=== PATIENT | male | born 1955 | race Caucasian/White ===

== ENCOUNTER 2023-07-31 10:20 | Outpatient (OUT) | payer MEDICARE, SELFPAY ==
[2023-07-31 10:48] LABS: Basophils Absolute Auto 0.1 10^3/uL (0.0-0.1); Basophils Percent Auto 0.6 % (0.2-2.0); Eosinophils Absolute Auto 0.2 10^3/uL (0.0-0.7); Eosinophils Percent Auto 1.8 % (0.9-7.0); Hematocrit 44.8 % (42.0-54.0); Hemoglobin 14.8 g/dL (14.0-18.0); Immature Granulocytes Abs Auto 0.12 10^3/uL (0.00-0.03); Immature Granulocytes Pct Auto 1.3 % (0.0-0.5); Lymphocytes Absolute Auto 2.3 10^3/uL (1.2-3.8); Lymphocytes Percent Auto 24.4 % (20.5-60.0); Mean Corpuscular Hemoglobin 31.2 pg (25.9-34.0); Mean Corpuscular Volume 94.5 fL (80.0-94.0); Mean Platelet Volume 8.9 fL (9.5-13.5); Monocytes Percent Auto 11.1 % (1.7-12.0); Neutrophils Absolute Auto 5.7 10^3/uL (1.4-6.5); Neutrophils Percent Auto 60.8 % (43.0-75.0); Platelet Count 188 10^3/uL (150-450); Red Blood Count 4.74 10^6/uL (4.70-6.10); Red Cell Distribution Width 12.4 % (11.0-15.0); White Blood Count 9.3 10^3/uL (4.0-11.0)
[2023-07-31 10:51] LABS: Erythrocyte Sedimentation Rate 55 mm/hr (<=20)
[2023-07-31 11:35] LABS: Alanine Aminotransferase 42 U/L (16-63); Anion Gap 12.7; BUN Creatinine Ratio 11.3; Calcium 9.1 mg/dL (8.5-10.1); Carbon Dioxide 28.1 mmol/L (21.0-32.0); Chloride 103 mmol/L (98-107); Estimated GFR (African America >60 (>=60); Estimated GFR (Non-African Ame >60 (>=60); Glucose 113 mg/dL (74-106); Potassium 3.8 mmol/L (3.5-5.1); Sodium 140 mmol/L (136-145)
[2023-07-31 11:52] LABS: Prostate Specific Antigen Scrn 3.84 ng/mL (<=4.00)
[2023-08-01 09:12] LABS: Rheumatoid Factor (RF) 12.6 IU/mL (<14.0)
== END 2023-07-31 10:21 | disposition home or self-care (01) ==
PROVIDERS: PCP Internal Medicine; Visit Provider Internal Medicine
DX: Z79.899 Other long term (current) drug therapy (principal); I10 Essential (primary) hypertension; Z87.39 Personal history of other diseases of the musculoskeletal system and connective tissue; Z12.5 Encounter for screening for malignant neoplasm of prostate; M06.4 Inflammatory polyarthropathy
CPT/HCPCS: 36415; 80048; 84460; 84550; 85025; 85652; 86430; 86431; G0103

== ENCOUNTER 2024-02-22 09:35 | Outpatient (OUT) | payer MEDICARE, SELFPAY ==
--- NOTE | 2024-02-22 09:50 | CT_ITS ---
The [address] [address] Patient Name: SAMMY MORRISON MRN: [id number] date: 1955 Sex: M Assigned Patient Location: LAB Current Patient Location: Accession/Order Number: [id number] Exam Date: 02/22/2024 10:44 Report Date: 02/23/2024 06:39 At the request of: PRATIMA ANGEL Procedure: CT head/brain wo/w con EXAMINATION: CT head/brain wo/w con HISTORY: Blurring Visual Image, Primary Hypertension COMPARISON: No relevant comparison available. TECHNIQUE: Axial CT images were obtained without IV contrast. Dose reduction techniques were achieved by using automated exposure control and/or adjustment of mA and/or kV according to patient size and/or use of iterative reconstruction technique. FINDINGS: BRAIN: No edema, hemorrhage, mass, acute infarction, or inappropriate atrophy. CSF SPACES: 5 mm dense nodule within the third ventricle. SKULL: No fracture, mass, or other significant visible lesion. SINUSES: Dense, complete opacification of right frontal sinuses, the majority of the right ethmoid air cells, and the right sphenoid sinus. ORBITS: No appreciable abnormality on the limited views. OTHER: Negative CT/CT head/brain wo/w con IMPRESSION: 1. No intracranial hemorrhage or appreciable acute abnormality. 2. Dense 5 mm nodule within the third ventricle. MRI of brain is recommended for further evaluation. 3. Marked chronic sinusitis involving the right frontal, sphenoid, and ethmoid sinuses. Electronically authenticated by: TONY CHACKO Date: 02/23/2024 06:39
[2024-02-22 10:07] LABS: Estimated GFR (African America >60 (>=60); Estimated GFR (Non-African Ame >60 (>=60)
== END 2024-02-22 09:36 | disposition home or self-care (01) ==
LOC: LAB 09:35
PROVIDERS: PCP Internal Medicine; Visit Provider Internal Medicine
DX: H53.8 Other visual disturbances (principal); I10 Essential (primary) hypertension
CPT/HCPCS: 36415; 70470; 82565; Q9967

== ENCOUNTER 2024-03-07 09:26 | Outpatient (OUT) | payer MEDICARE, SELFPAY ==
--- NOTE | 2024-03-07 09:31 | MR_ITS ---
The [address] [address] Patient Name: SAMMY MORRISON MRN: [id number] date: 1955 Sex: M Assigned Patient Location: MRI Current Patient Location: Accession/Order Number: [id number] Exam Date: 03/07/2024 10:00 Report Date: 03/09/2024 08:31 At the request of: PRATIMA ANGEL Procedure: MR head/brain wo/w con MR head/brain wo/w con, 03/07/2024 10:00 AM EDT INDICATION: Mass Of Brain G93.89 COMPARISON: Prior CT of the head dated 02/22/2024 TECHNIQUE: Multiplanar, multisequential MRI images of brain were obtained without and with injection of contrast. FINDINGS: The cerebral sulci as well as ventricular system are appropriate for age. There is no restricted diffusion. There is no midline shift, intra or extra-axial fluid collection or large hemorrhage. Previously described 5 mm lesion at the level of foramen Monro in the third ventricle is most likely consistent with colloid cyst. No abnormal enhancing lesion is noted. Hyperintensities on T2 and FLAIR images in the parks radiata and centrum semiovale with sparing of U fibers are nonspecific, statistically most likely consistent with mild microvascular ischemic changes. Normal flow-void in the intracranial vessels is noted. Retention cyst within the right maxillary sinus is noted. There is mucosal thickening within the right frontal sinus, right frontal recess and anterior ethmoidal cells. The visualized portions of orbits, mastoid air cells as well as remainder of paranasal sinuses are unremarkable. MR/MR head/brain wo/w con IMPRESSION: No acute intracranial process is noted. 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 Mucosal thickening within the right frontal sinus, frontal recess and anterior ethmoidal cells suggesting of ostiomeatal complex obstruction. ENT correlation is recommended. Electronically authenticated by: JUSTINA AUGUSTINE Date: 03/09/2024 08:31
--- OUTSIDE RECORDS SUMMARY | 2024-03-07 09:41 | XMS_ITS | CCD ---
Author Organization [facility] Care Team Providers Care Instructor Kindergarten Name Role Phone Luis Angel Unavailable REQUEST, DR KAUFMAN LISTED Consulting Unavaila ble REQUEST, DR KAUFMAN LISTED Admitting Unavaila ble REQUEST, DR KAUFMAN LISTED Attending Unavaila ble BALL, DR ANDUJAR Primary Care Unavailable BALL, DR ANDUJAR Admitting Unavailable BALL, DR ANDUJAR Attending Unavailable BALL, DR ANDUJAR Consulting Unavailable BALL, DR ANDUJAR Primary Care Unavailable BALL, DR ANDUJAR Admitting Unavailable BALL, DR ANDUJAR Attending Unavailable BALL, DR ANDUJAR Consulting Unavailable Allergies Allergy Classification Reported Allergen(s) Allergy Type Date of Onset Reaction(s) Facility (6 sources) [facility] 01-29-2024 Unknown, Unknown Reaction [facility] (6 sources) febuxostat Drug Allergy 01-29-2024 Unknown, Unknown Reaction [facility] Medications Current Medications Medication Drug Class(es) Dates Sig (Normalized) Sig (Original) amLODIPine 5 mg oral tablet (1 source) Dihydropyridine Calcium Channel Ariadna Start: 12-03-2023 take 5 mg by mouth once daily Amlodipine Active 5 MG PO Daily 90 90 December 03, 2023 12:00am carvedilol 12.5 mg oral tablet (7 sources) alpha-Adrenergic Ariadna, beta-Adrenergic [facility]adna Start: 11-04-2023 take 1 tablet by mouth twice daily Carvedilol Active 0 .ROUTE .COMPLEX 180 November 04, 2023 9:58am TAKE 1 TABLET BY MOUTH TWICE A DAY Start: 11-04-2023 End: 11-04-2023 take 12.5 mg by mouth twice daily Carvedilol Discontinued 12.5 MG PO Twice daily November 04, 2023 12:00am November 04, 2023 9:58am take 1 tablet by jazmine th twice daily Carvedilol 12.5 MG TAKE 1 TABLET BY MOUTH TWICE A DAY Active predniSONE 20 mg oral tablet (4 sources) Start: 09-25-2023 Prednisone Act eleni 20 MG PO As Directed September 25, 2023 1:00am predniSONE 10 MG TAKE 2 TABS 3 TIMES DAILY X5DAYS,2 TABS TWICE DAILY X5DAYS,2 TABS DAILY X5DAYS NEEDED FOR GOUT for 15 Active predniSONE 10 MG TAKE 2 TABS 3 TIMES DAILY X5 DAYS,2 TABS TWICE DAILY X5 DAYS,2 TABS DAILY X5 DAYS NEEDED FOR GOUT Active traZODone hydrochloride 50 mg oral tablet (3 sources) Serotonin Reuptake Inhibitor Start: 11-04-2023 Trazodone Active 50 MG PO Daily at bedtime November 04, 2023 12:00am TAKE 1/2 - 1 TABLET BY MOUTH EVERYDAY AT BEDTIME Orally Once a day Start: 05-25-2023 take 0.5-1 tablets b y mouth once at bedtime traZODone HCl 50 MG 1/2 - 1 tablet Orally q HS for 30 days May, Active Problems Problem Classification Problem Date Documented Date Episodic/Chronic E Codes: Adverse effects of medical drugs (3 sources) Prednisone adverse reaction; Translations: [Adverse effect of glucocorticoids and synthetic analogues, initial encounter] 12-03-2023 Episodic Essential hypertension (14 sources) Essential hypertension; Translations: [Essential (primary) hypertension] Onset: 06-12-2022 Chronic Genitourinary symptoms and ill-defined conditions (2 sources) Nocturia Episodic Hyperplasia of prostate (9 sources) 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; Translations: [Benign prostatic hyperplasia with lower urinary tract symptoms] Chronic Miscellaneous mental health disorders (3 sources) Primary insomnia; Translations: [Primary insomnia] Chronic Osteoarthritis (7 sources) Osteoarthritis of knee; Translations: [Bilateral primary osteoarthritis of knee] Chronic Other aftercare (1 source) Other intermission coordinator (current) drug therapy Episodic Other connective tissue disease (2 sources) Personal history of other diseases of the musculoskeletal system and connective tissue Episodic Other nutritional; endocrine; and metabolic disorders (1 source) Obese abdomen; Translations: [Localized adiposity] 12-03-2023 Chronic Other nutritional; endocrine; and metabolic disorders (1 source) Obesity; Translations: [Obesity, unspecified] 12-03-2023 Chronic Other nutritional; endocrine; and metabolic disorders (2 sources) Obesity, unspecified; Translations: [Obesity, unspecified] 12-03-2023 Chronic Other screening for suspected conditions (not mental disorders or infectious disease) (7 sources) Raised prostate specific antigen; Translations: [Elevated prostate specific antigen [PSA]] Onset: 06-16-2022 Episodic Rheumatoid arthritis and related disease (16 sources) Inflammatory polyarthropathy; Translations: [Inflammatory polyarthropathy] Onset: 2022 Chronic Spondylosis; intervertebral disc disorders; other back problems (9 sources) Lumbar spondylosis; Translations: [Spondylosis without myelopathy or radiculopathy, lumbar region] Chronic Results Test Name Value Interpretation Reference Range Facil ity RHEUMATOID FACTORon 12-11-19 RA Latex Turbid. 11.7 IU/mL Normal <14.0 [facility] Comment on above: Performed By: #### R F #### [facility] [address] [place] [address] Dr. Gearld Mejia CRPon 2022 CRP 2.9 mg/dL Critically high <=1.0 [facility] Comment on above: Performed By: #### C RP #### [facility] [address] [place] [address] Dr. Gerald Mejia CBC AUTO DIFFon 06-12-2022 BASO # 0.0 103/ul Normal 0.0-0.1 [facility] Comment on above: Performed By: #### C BC #### [facility] [address] [place] [address] Dr. Gerald Mejia Basophils/100 WBC (Bld) 0.3 % Normal 0.2-2.0 [facility] Comment on above: Performed By: #### C BC #### [facility] [address] [place] [address] Dr. Gerald Mejia EO # 0.1 103/ul Normal 0.0-0.7 [facility] Comment on above: Performed By: #### C BC #### [facility] [address] [place] [address] Dr. Gerald Mejia Eosinophils/100 WBC (Bld) 1.3 % Normal 0.9-7.0 [facility] Comment on above: Performed By: #### C BC #### [facility] [address] [place] [address] Dr. Gerald Mejia Erythrocyte distribution width (RBC) [Ratio] 12.2 % Normal 11.0-15.0 [facility] Comment on above: Performed By: #### C BC #### [facility] [address] [place] [address] Dr. Gerald Mejia Hematocrit (Bld) [Volume fraction] 42.7 % Normal 42.0-54.0 [facility] Comment on above: Performed By: #### C BC #### [facility] [address] [place] [address] Dr. Gerald Mejia Hemoglobin (Bld) [Mass/Vol] 14.4 g/dL Normal 14.0-18.0 [facility] Comment on above: Performed By: #### C BC #### [facility] [address] [place] [address] Dr. Gerald Mejia IG # 0.10 10e3/ul Critically high 0.00-0.03 [facility] Comment on above: Performed By: #### C BC #### [facility] [address] [place] [address] Dr. Gerald Mejia IG % 1.0 % Critically high 0.0-0.5 [facility] Comment on above: Performed By: #### C BC #### [facility] [address] [place] [address] Dr. Gerald Mejia LYMPH # 2.5 103/ul Normal 1.2-3.8 [facility] Comment on above: Performed By: #### C BC #### [facility] [address] [place] [address] Dr. Gerald Mejia Lymphocytes/100 WBC (Bld) 24.7 % Normal 20.5-60.0 [facility] Comment on above: Performed By: #### C BC #### [facility] [address] [place] [address] Dr. Gerald Mejia MANUAL DIFF REQ NO Normal [facility] Comment on above: Performed By: #### C BC #### [facility] [address] [place] [address] Dr. Gerald Mejia MCH (RBC) [Entitic mass] 32.2 pg Normal 25.9-34.0 [facility] Comment on above: Performed By: #### C BC #### [facility] [address] [place] [address] Dr. Gerald Mejia MCHC (RBC) [Mass/Vol] 33.7 g/dL Normal 29.9-35.2 [facility] Comment on above: Performed By: #### C BC #### [facility] [address] [place] [address] Dr. Gerald Mejia MCV (RBC) [Entitic vol] 95.5 fL Critically high 80.0-94.0 [facility] Comment on above: Performed By: #### C BC #### [facility] [address] [place] [address] Dr. Gerald Mejia MONO # 1.1 103/ul Critically high 0.3-0.8 [facility] Comment on above: Performed By: #### C BC #### [facility] [address] [place] [address] Dr. Gerald Mejia Monocytes/100 WBC (Bld) 11.1 % Normal 1.7-12.0 [facility] Comment on above: Performed By: #### C BC #### [facility] [address] [place] [address] Dr. Gerald Mejia NEUT # 6.3 103/ul Normal 1.4-6.5 [facility] Comment on above: Performed By: #### C BC #### [facility] [address] [place] [address] Dr. Gerald Mejia Neutrophils/100 WBC (Bld) 61.6 % Normal 43.0-75.[address] [facility] Comment on above: Performed By: #### C BC #### [facility] [address] [place] [address] Dr. Gerald Mejia Platelet mean volume (Bld) [Entitic vol] 9.3 fL Critically low 9.5-13.5 [facility] Comment on above: Performed By: #### C BC #### [facility] [address] [place] [address] Dr. Gerald Mejia PLT 205 103/ul Normal 150-[address] [facility] Comment on above: Performed By: #### C BC #### [facility] [address] [place] [address] Dr. Gerald Mejia RBC 4.47 106/ul Critically low 4.70-6.10 [facility] Comment on above: Performed By: #### C BC #### [facility] [address] [address] [address] Gerald Mejia WBC 10.2 103/ul Normal 4.0-11.0 [facility] Comment on above: Performed By: #### C BC #### [facility] [address] [place] [address] Dr. Gerald Mejia PROF CHEM 8 (BAS METB)on Anion gap [Moles/Vol] 10.3 mmol/L Normal [facility] Comment on above: Performed By: #### B MP #### [facility] [address] [place] [address] Dr. Gerald Mejia Calcium [Mass/Vol] 9.0 mg/dL Normal 8.5-10.1 [facility] Comment on above: Performed By: #### B MP #### [facility] [address] [place] [address] Dr. Gerald Mejia Chloride [Moles/Vol] 100 mmol/L Normal 98-[address] [facility] Comment on above: Performed By: #### B MP #### [facility] [address] [place] [address] Dr. Gerald Mejia CO2 [Moles/Vol] 31.5 mmol/L Normal 21.0-32.0 [facility] Comment on above: Performed By: #### B MP #### [facility] [address] [place] [address] Dr. Gerald Mejia Creatinine [Mass/Vol] 0.98 mg/dL Normal 0.70-1.30 [facility] Comment on above: Performed By: #### B MP #### [facility] [address] [place] [address] Dr. Gerald Mejia EGFR-AF MACEDONIAN >60 Normal >=60 [facility] Comment on above: Performed By: #### B MP #### [facility] [address] [address] [address] Gerald Mejia EGFR-NON AF MACEDONIAN >60 Normal >=60 [facility] Comment on above: Performed By: #### B MP #### [facility] [address] [address] [address] Gerald Mejia Glucose [Mass/Vol] 114 mg/dL Critically high 74-106 [facility] Comment on above: Performed By: #### B MP #### [facility] [address] [address] [address] Gerald Mejia Potassium [Moles/Vol] 3.8 mmol/L Normal 3.5-5.1 [facility] Comment on above: Performed By: #### B MP #### [facility] [address] [address] [address] Gerald Mejia Sodium [Moles/Vol] 138 mmol/L Normal 136-145 [facility] Comment on above: Performed By: #### B MP #### [facility] [address] [address] [address] Gerald Mejia Urea nitrogen [Mass/Vol] 14.0 mg/dL Normal 7.0-18.0 [facility] Comment on above: Performed By: #### B MP #### [facility] [address] [address] [address] Gerald Mejia Urea nitrogen/Creatinine [Mass ratio] 14.3 mg/mg Normal [facility] Comment on above: Performed By: #### B MP #### [facility] [address] [address] [address] Gerald Mejia Vital Signs Date Time Vital Sign Value Performing Clinician Facility 01-29-2024 14: Body height 170.18 cm [facility] 01-29-2024 14: Body mass index (BMI) [Ratio] 30.7 kg/m2 [facility] 01-29-2024 14: Body weight 89.01 kg [facility] 01-29-2024 14:29-0400 Diastolic blood pressure 95 mm[Hg] [facility] 01-29-2024 14:29-0400 Heart rate 58 /min [facility] 01-29-2024 14:29-0400 Respiratory rate 12 /min [facility] 01-29-2024 14:29-0400 Systolic blood pressure 180 mm[Hg] [facility] 12-03-2023 08:31-0400 Body height 170.18 cm [facility] 12-03-2023 08:31-0400 Body mass index (BMI) [Ratio] 31.1 kg/m2 [facility] 12-03-2023 08:31-0400 Body weight 90.26 kg [facility] 12-03-2023 08:31-0400 Diastolic blood pressure 101 mm[Hg] [facility] 12-03-2023 08:31-0400 Heart rate 57 /min [facility] 12-03-2023 08:31-0400 Respiratory rate 12 /min [facility] 12-03-2023 08:31-0400 Systolic blood pressure 193 mm[Hg] [facility] 05-25-2023 08:30-0400 Body height 170.18 cm Luis Ball Other [facility] Other 05-25-2023 08:30-0400 Body mass index (BMI) [Ratio] 31.35 kg/m2 Luis Ball Other [facility] Other 05-25-2023 08:30-0400 Body weight 90.81 kg Luis Ball Other [facility] Other 05-25-2023 08:30-0400 Diastolic blood pressure 101 mm[Hg] Luis Ball Other [facility] Other 05-25-2023 08:30-0400 Respiratory rate 12 /min Luis Ball Other [facility] Other 05-25-2023 08:30-0400 Systolic blood pressure 197 mm[Hg] Luis Ball Other [facility] Other 11-20-2022 10:00-0400 Body height 170.18 cm Luis Ball Other [facility] Other 11-20-2022 10:00-0400 Body mass index (BMI) [Ratio] 31.29 kg/m2 Luis Ball Other [facility] Other 11-20-2022 10:00-0400 Body weight 90.63 kg Luis Ball Other [facility] Other 11-20-2022 10:00-0400 Diastolic blood pressure 109 mm[Hg] Luis Ball Other [facility] Other 11-20-2022 10:00-0400 Respiratory rate 16 /min Luis Ball Other [facility] Other 11-20-2022 10:00-0400 Systolic blood pressure 193 mm[Hg] Luis Ball Other [facility] Other Encounters Encounter Date Encounter Type Care Provider Facility Start: 01-29-2024 End: 01-29-2024 ambulatory [facility] Work Phone: Start: 01-29-2024 End: 01-29-2024 Patient encounter procedure [facility] Work Phone: Start: 12-03-2023 End: 12-03-2023 Patient encounter procedure [facility] Work Phone: Start: 11-04-2023 Non-patient / Non-visit [facility] Work Phone: Start: 08-04-2023 End: 08-04-2023 ambulatory Luis Ball Other [facility] Other Start: 08-04-2023 Telephone encounter Luis FOWLER [facility] Start: 05-25-2023 End: 05-25-2023 ambulatory Luis Angel Other [facility] Other Start: 05-25-2023 Patient encounter procedure Luis Angel [facility] Start: 02-02-2023 End: 02-02-2023 ambulatory Luis Angel Other [facility] Other Start: 02-02-2023 Telephone encounter Luis FOWLER G [facility] Start: 12-22-2022 End: 12-22-2022 ambulatory Luis Angel Other [facility] Other Start: 12-22-2022 Telephone encounter Luis Muniz [employer] Start: 2022 End: 12-10-[address] LUIS ANGEL Facility:[facility] Start: 11-20-2022 End: 11-20-2022 ambulatory Luis Angel Other [facility] Other Start: 11-20-2022 Office outpatient vi sit 25 minutes Luis Angel [facility] Start: 06-12-2022 End: 06-13-[address] LUIS ANGEL Facility:[facility] Start: 01-08-2022 End: 01-09-[address] KAUFMAN LISTED REQUEST Facility: Procedures Date Procedure Procedure Detail Performing Clinician Start: 06-12-[address] SHAE Lewis ISTED REQUEST Comment on above: Performed By: #### P SASC #### [facility] [address] [place] [address] Dr. Gerald Mejia Start: 01-08-[address] SHAE Lewis ISTED REQUEST Comment on above: Performed By: #### D ATPSA #### [facility] [address] [place] [address] Dr. Gerald Mejia Immunizations Immunization Date Immunization Notes Care Provider Fa cili 07-24-2021 COVID-19 Vaccine Pfi zer - Documentation Purposes Only Luis Angel Other [facility] 01-10-2021 COVID-19 Vaccine Pfi zer - Documentation Purposes Only Luis Angel Other [facility] 12-20-2020 COVID-19 Vaccine Pfi zer - Documentation Purposes Only Luis Angel Other [facility] Payers Date Payer Category Payer Medicare [id number] 1959 Self-pay 1955 Unknown [id number] 1955 Unknown [id number] Unknown [id number] Social History Date Type Detail Facility Sex Assigned At [facility] Other Start: 1955 Sex Assigned At Male [facility] Evaluation note 05-25-2023 Note Date & Type Note Facility 05-25-2023 Evaluation note Encounter Date Diagnosis Assessment Notes May, Essential (primary) hypertension (ICD-10 - I10) This patient is instructed to consume a healthy, low-fat, low-salt diet. They are also encouraged to continue exercise to achieve/maintai n a normal BMI. May, Inflammatory polyarthritis (ICD-10 - M06.4) ROM exercises, heat/ice and Voltaren Gel Continue Prednisone as needed. Discussed adverse effects of prolonged steroid use. He declines referral to Rheum Check ESR and RA May, Lumbar spondylosis (ICD-10 - M47.816) The patient is instructed to avoid bending, twisting or lifting. They are to use intermittent heat and ice as needed. They may schedule a massage or gentle manipulation. They may safely use Tylenol as needed. May, Bilateral primary osteoarthritis of knee (ICD-10 - M17.0) ROM exercises, quad exercises, ice/heat and Tylenol. Avoid squatting or kneeling May, Nocturia (ICD-10 - R35.1) May, Benign prostatic hyperplasia with lower urinary tract symptoms (ICD-10 - N40.1) Symptoms tolerable, yearly PSA May, Primary insomnia (ICD-10 - F51.01) May, Medicare annual wellness visit, subsequent (ICD-10 - Z00.00) Personalized health advice was given to the beneficiary including a written plan for screenings discussed and provided. Advanced care planning reviewed and/or information given as requested. Additional counseling was provided here today in regards to, [ ]. The above visit was performed by [ ], under direct supervision of [ ]. Document reviewed and amended by provider signed below. May, High risk medication use (ICD-10 - Z79.899) May, Hx of gout (ICD-10 - Z87.39) Check UA and eSR May, Screening PSA (prostate specific antigen) (ICD-10 - Z12.5) Yearly PSA - declines ALESSIA [facility] Other Evaluation note 11-20-2022 Note Date & Type Note Facility 11-20-2022 Evaluation note Encounter Date Diagnosis Assessment Notes Nov, Essential (primary) hypertension (ICD-10 - I10) This patient is instructed to consume a healthy, low-fat, low-salt diet. They are also encouraged to continue exercise to achieve/maintain a normal BMI. Monitor home BP, stop in office for recheck Goal < 135/85 Nov, Inflammatory polyarthritis (ICD-10 - M06.4) Ice, ROM exercises Taper steroids to 5-10mg daily Questionable dx of Gout, refer to Rheumatology for evaluation and treatment guidelines Nov, Lumbar spondylosis (ICD-10 - M47.816) The patient is instructed to avoid bending, twisting or lifting. They are to use intermittent heat and ice as needed. They may schedule a massage or gentle manipulation. They may safely use Tylenol as needed. Nov, Bilateral primary osteoarthritis of knee (ICD-10 - M17.0) Quad exercises, ice/heat and avoid squatting/kneeli ng Nov, Nocturia (ICD-10 - R35.1) Nov, Benign prostatic hyperplasia with lower urinary tract symptoms (ICD-10 - N40.1) Symptoms tolerable Yearly PSA and ALESSIA Nov, Hx of gout (ICD-10 - Z87.39) Dx by [facility] [employer] [facility] in [place]. His presentation is atypical in that it will involve joints throughout his body He had elevated hepatic enzymes w/ different Urate lowering medications prompting to d/c treatment. He uses tapering doses of Prednisone for attacks but having repeated attacks since July. Suggest tapering to 5mg daily and don't taper completely off for now [facility] Other Evaluation note Note Date & Type Note Facility Evaluation note No Information [facility] [employer] [facility] Other Evaluation note Note Date & Type Note Facility Evaluation note Diagnosis Onset Date Adverse effect of prednisone acute Benign prostatic hyperplasia with lower urinary tract symptoms acute Essential (primary) hypertension acute Inflammatory polyarthritis a cute Lumbar spondylosis acute Obesity acute Adverse effect of prednisone acute Essential (primary) hypertension acute Inflammatory polyarthritis a cute Obesity acute [facility] Work Phone: History general Narrative - Reported Note Date & Type Note Facility History general Narrative - Reported Type Medical History Inflammatory polyarthropathy Medical History Bilateral primary os teoarthritis of knee Medical History Lumbar spondylosis Medical History Essential (primary) hypertension Medical History Elevated PSA Surgical History TESTICLE REMOVED 1967 Surgical History TONSILLECTOMY Surgical History COLONOSCOPY Hospitalization History SEE SURGICAL HX [facility] Other Reason for referral (narrative) Note Date & Type Note Facility Reason for referral (narrative) Diagnosis 1 Inflammatory polyart hritis (M06.4) Referral Organization [facility] Gomez rich Referring Provider First Name Luis Referring Provider Last Name Gomez Referring Provider Specialty Internal Medicine Referred Organization [facility] Referred Provider Ashok Borrego Referred Address [address] [facility] [address],[place], [place],[address] Referred Provider Specialty Rheumatology Referral Priority Routine [facility] Other Summary Purpose Family History No Family History Records Found Advance Directives Advance Directive Response Recorded Date/ Time Advance Directives No August 27, 2023 3:49pm Chief Complaint and Reason for Visit Chief Complaint Amb Documentation 6 month follow up possible mini strokes Reason for Visit Adverse effect of pr ednisone Benign prostatic hyperplasia with lower urinary tract symptoms Essential (primary) hypertension Inflammatory polyarthritis Lumbar spondylosis Obesity Adverse effect of prednisone Essential (primary) hypertension Inflammatory polyarthritis Obesity Additional Source Comments REASON FOR VISIT (unrecogniz ed section and content) 6 MONTH FOLLOW UPquestionref erralwellnessLab results (unrecognized sect ion and content) No Status Records Found INFORMATION SOURCE (unrecogn ized section and content) DATE CREATED AUTHOR 12/12/[address] [facility] Teams (unrecognized sec tion and content) Team Status: Active Member Role Status Dates Luis Angel DO Primary Care Provider Active Team Status: Active Member Role Status Dates Luis Angel DO Primary Care Provider Active Start: November 04, 2023 KERVIN Childs Attending Provider Active Start : November 04, 2023 Team Status: Inactive Member Role Status Dates Luis Angel DO Primary Care Provide r, Attending Provider Active Start: December 03, 2023 End: December 03, 2023 Team Status: Inactive Member Role Status Dates Luis Angel DO Primary Care Provide r, Attending Provider Active Start: January 29, 2024 End: January 29, 2024 Goals (unrecognized section and content) Goals may be documented in a n alternate section FOR RECORDS PERTAINING TO PATIENTS WHO ARE OR HAVE BEEN ENROLLED IN A CHEMICAL DEPENDENCY/SUBSTANCEABUSE PROGRAM, SOME INFORMATION MAY BE OMITTED. This clinical summary was aggregated from multiple sources. Caution should be exercised in using it in the provision of clinical care. This summary normalizes information from multiple sources, and as a consequence, information in this document may materially change the coding, format and clinical context of patient data. In addition, data may be omitted in some cases. CLINICAL DECISIONS SHOULD BE BASED ON THE PRIMARY CLINICAL RECORDS. [facility] [employer] provides no warranty or guarantee of the accuracy or completeness of information in this document.
== END 2024-03-07 09:27 | disposition home or self-care (01) ==
LOC: MRI 09:26
PROVIDERS: PCP Internal Medicine; Visit Provider Internal Medicine
DX: G93.89 Other specified disorders of brain (principal)
CPT/HCPCS: 70553; A9575

== ENCOUNTER 2024-12-28 10:38 | Outpatient (OUT) | payer MEDICARE, SELFPAY ==
--- OUTSIDE RECORDS SUMMARY | 2024-12-28 11:03 | XMS_ITS | CCD ---
Author Organization [facility] Care Team Providers Care Space Operations Name Role Phone Luis Angel Unavailable REQUEST, DR KAUFMAN LISTED Consulting Unavaila ble REQUEST, DR KAUFMAN LISTED Admitting Unavaila ble REQUEST, DR KAUFMAN LISTED Attending Unavaila ble BALL, DR ANDUJAR Primary Care Unavailable GOMEZ, DR ANDUJAR Admitting Unavailable GOMEZ, DR ANDUJAR Attending Unavailable BALL, DR ANDUJAR Consulting Unavailable BALL, DR ANDUJAR Primary Care Unavailable BALL, DR ANDUJAR Admitting Unavailable BALL, DR ANDUJAR Attending Unavailable BALL, DR ANDUJAR Consulting Unavailable Allergies Allergy Classification Reported Allergen(s) Allergy Type Date of Onset Reaction(s) Facility (7 sources) [facility] Drug Allergy 01-29-2024 Unknown, Unknown Reaction [facility] (7 sources) febuxostat Drug Allergy 01-29-2024 Unknown, Unknown Reaction [facility] Medications Current Medications Medication Drug Class(es) Dates Sig (Normalized) Sig (Original) amLODIPine 5 mg oral tablet (3 sources) Dihydropyridine Calcium Channel Ariadna Start: 11-06-2024 take 1 tablet by mouth once daily Amlodipine 5 mg tablet Active 0 .ROUTE .COMPLEX 90 November 06, 2024 2:59pm TAKE 1 TABLET BY MOUTH EVERY DAY Start: 12-03-2023 End: 11-06-2024 take 1 tablet by mouth once daily Amlodipine 5 mg tablet Discontinued 5 MG PO Daily 90 90 December 03, 2023 12:00am November 06, 2024 2:59pm carvedilol 12.5 mg oral tablet (11 sources) alpha-Adrenergic Ariadna, beta-Adrenergic Ariadna Start: 11-06-2024 take 1 tablet by mouth twice daily Carvedilol 12.5 mg tablet Active 0 .ROUTE .COMPLEX 180 November 06, 2024 2:59pm TAKE 1 TABLET BY MOUTH TWICE A DAY Start: 01-29-2024 End: 11-06-2024 take 1 tablet by mouth twice daily Carvedilol 12.5 mg tablet Discontinued 12.5 MG PO Twice daily 180 90 January 29, 2024 3:04pm November 06, 2024 2:59pm Start: 11-04-2023 End: 01-29-2024 take 1 tablet by mouth twice daily Carvedilol 12.5 mg tablet Discontinued 0 .ROUTE .COMPLEX 180 November 04, 2023 9:58am January 29, 2024 3:43pm TAKE 1 TABLET BY MOUTH TWICE A DAY Start: 11-04-2023 End: 11-04-2023 take 1 tablet by mouth twice daily Carvedilol 12.5 mg tablet Discontinued 12.5 MG PO Twice daily November 04, 2023 12:00am November 04, 2023 9:58am take 1 tablet by jazmine th twice daily Carvedilol 12.5 MG TAKE 1 TABLET BY MOUTH TWICE A DAY Active fluorouracil 50 mg/ml topical cream (1 source) Nucleoside Metabolic Inhibitor Start: 06-06-2024 Fluorouracil 5 % cre am Active 1 APPLIC TOPICAL Twice daily 40 14 June 06, 2024 1:00am traZODone hydrochloride 50 mg oral tablet (4 sources) Serotonin Reuptake Inhibitor Start: 11-04-2023 Trazodone 50 mg tabl et Active 50 MG PO Daily at bedtime November 04, 2023 12:00am TAKE 1/2 - 1 TABLET BY MOUTH EVERYDAY AT BEDTIME Orally Once a day Start: 05-25-2023 take 0.5-1 tablets b y mouth once at bedtime traZODone HCl 50 MG 1/2 - 1 tablet Orally q HS for 30 days May, Active Completed/Discontinued Medications Medication Drug Class(es) Dates Sig (Normalized) Sig (Original) predniSONE 10 mg oral tablet (8 sources) Start: 09-06-2024 End: 12-05-2024 take 1-2 tablets by mouth once daily as needed for pain Prednisone 10 mg tablet Discontinued 0 .ROUTE .COMPLEX 60 September 06, 2024 9:46pm December 05, 2024 8:29am TAKE 1 - 2 TABLETS BY MOUTH ONCE A DAY NEEDED FOR PAIN Start: 06-06-2024 End: 09-06-2024 take 2 tablets by mouth once daily as needed for pain Prednisone 10 mg tablet Discontinued 0 PO .COMPLEX as needed for pain 60 June 06, 2024 10:04am September 06, 2024 9:46pm TAKE 1- 2 TABLET BY MOUTH DAILY NEEDED FOR PAIN; Start: 03-23-2024 End: 06-06-2024 take 1 tablet by mouth once daily Prednisone 20 mg tablet Discontinued 0 .ROUTE .COMPLEX March 23, 2024 7:39am June 06, 2024 10:06am TAKE 1 TABLET BY MOUTH EVERY DAY DIRECTED FOR 30 DAYS Start: 09-25-2023 End: 03-23-2024 Prednisone 20 mg tablet Disc ontinued 20 MG PO As Directed September 25, 2023 1:00am March 23, 2024 7:40am predniSONE 10 MG TAKE 2 TABS 3 TIMES DAILY X5DAYS,2 TABS TWICE DAILY X5DAYS,2 TABS DAILY X5DAYS NEEDED FOR GOUT for 15 Active predniSONE 10 MG TAKE 2 TABS 3 TIMES DAILY X5 DAYS,2 TABS TWICE DAILY X5 DAYS,2 TABS DAILY X5 DAYS NEEDED FOR GOUT Active Problems Problem Classification Problem Date Documented Date Episodic/Chronic Blindness and vision defects (1 source) Blurring of visual image; Translations: [Other visual disturbances] 01-29-2024 Episodic Diabetes mellitus without complication (2 sources) Impaired fasting glycemia; Translations: [Impaired fasting glucose] 01-29-2024 Episodic Disorders of lipid metabolism (1 source) Hypercholesterolemia; Translations: [Pure hypercholesterolemia, unspecified] 06-06-2024 Chronic E Codes: Adverse effects of medical drugs (5 sources) Prednisone adverse reaction; Translations: [Adverse effect of glucocorticoids and synthetic analogues, initial encounter] 12-03-2023 Episodic Essential hypertension (16 sources) Essential hypertension; Translations: [Essential (primary) hypertension] Onset: 06-12-2022 Chronic Genitourinary symptoms and ill-defined conditions (2 sources) Nocturia Episodic Gout and other crystal arthropathies (2 sources) Gout; Translations: [Gout, unspecified] 12-05-2024 Chronic Hyperplasia of prostate (10 sources) 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; Translations: [Benign prostatic hyperplasia with lower urinary tract symptoms] Chronic Miscellaneous mental health disorders (3 sources) Primary insomnia; Translations: [Primary insomnia] Chronic Osteoarthritis (7 sources) Osteoarthritis of knee; Translations: [Bilateral primary osteoarthritis of knee] Chronic Other aftercare (1 source) Other assistant terminal manager (current) drug therapy Episodic Other connective tissue disease (2 sources) Personal history of other diseases of the musculoskeletal system and connective tissue Episodic Other nervous system disorders (1 source) Mass lesion of brain; Translations: [Other specified disorders of brain] 02-23-2024 Chronic Other nutritional; endocrine; and metabolic disorders (2 sources) Obese abdomen; Translations: [Localized adiposity] 12-03-2023 Chronic Other nutritional; endocrine; and metabolic disorders (2 sources) Obesity; Translations: [Obesity, unspecified] 12-03-2023 Chronic Other nutritional; endocrine; and metabolic disorders (3 sources) Obesity, unspecified; Translations: [Obesity, unspecified] 12-03-2023 Chronic Other screening for suspected conditions (not mental disorders or infectious disease) (9 sources) Raised prostate specific antigen; Translations: [Elevated prostate specific antigen [PSA]] Onset: 06-16-2022 Episodic Rheumatoid arthritis and related disease (18 sources) Inflammatory polyarthropathy; Translations: [Inflammatory polyarthropathy] Onset: 2022 Chronic Spondylosis; intervertebral disc disorders; other back problems (11 sources) Lumbar spondylosis; Translations: [Spondylosis without myelopathy or radiculopathy, lumbar region] Chronic Results Test Name Value Interpretation Reference Range Facil ity RHEUMATOID FACTORon 12-11-19 RA Latex Turbid. 11.7 IU/mL Normal <14.0 [facility] Comment on above: Performed By: #### R F #### [facility] [address] [place] [address] Dr. Gerald Mejia CRPon 2022 CRP 2.9 mg/dL Critically high <=1.[address] [facility] Comment on above: Performed By: #### C RP #### [facility] [address] [place] [address] Dr. Gerald Mejia CBC AUTO DIFFon 06-12-2022 BASO # 0.0 103/ul Normal 0.0-0.1 [facility] Comment on above: Performed By: #### C BC #### [facility] [address] [place] [address] Dr. Gerald Mejia Basophils/100 WBC (Bld) 0.3 % Normal 0.2-2.0 [facility] Comment on above: Performed By: #### C BC #### [facility] [address] [place] [address] Dr. Gerald Mejia EO # 0.1 103/ul Normal 0.0-0.7 [facility] Comment on above: Performed By: #### C BC #### [facility] [address] [place] [address] Dr. Gerald Mejia Eosinophils/100 WBC (Bld) 1.3 % Normal 0.9-7.0 [facility] Comment on above: Performed By: #### C BC #### [facility] [address] [place] [address] Dr. Gerald Mejia Erythrocyte distribution width (RBC) [Ratio] 12.2 % Normal 11.0-15.0 [facility] Comment on above: Performed By: #### C BC #### [facility] [address] [place] [address] Dr. Gerald Mejia Hematocrit (Bld) [Volume fraction] 42.7 % Normal 42.0-54.0 [facility] Comment on above: Performed By: #### C BC #### [facility] [address] [place] [address] Dr. Gerald Mejia Hemoglobin (Bld) [Mass/Vol] 14.4 g/dL Normal 14.0-18.0 [facility] Comment on above: Performed By: #### C BC #### [facility] [address] [place] [address] Dr. Gerald Mejia IG # 0.10 10e3/ul Critically high 0.00-0.03 [facility] Comment on above: Performed By: #### C BC #### [facility] [address] [place] [address] Dr. Gerald Mejia IG % 1.0 % Critically high 0.0-0.[address] [facility] Comment on above: Performed By: #### C BC #### [facility] [address] [place] [address] Dr. Gerald Mejia LYMPH # 2.5 103/ul Normal 1.2-3.8 [facility] Comment on above: Performed By: #### C BC #### [facility] [address] [place] [address] Dr. Gerald Mejia Lymphocytes/100 WBC (Bld) 24.7 % Normal 20.5-60.0 [facility] Comment on above: Performed By: #### C BC #### [facility] [address] [place] [address] Dr. Gerald Mejia MANUAL DIFF REQ NO Normal [facility] Comment on above: Performed By: #### C BC #### [facility] [address] [place] [address] Dr. Gerald Mejia MCH (RBC) [Entitic mass] 32.2 pg Normal 25.9-34.0 [facility] Comment on above: Performed By: #### C BC #### [facility] [address] [place] [address] Dr. Gerald Mejia MCHC (RBC) [Mass/Vol] 33.7 g/dL Normal 29.9-35.2 [facility] Comment on above: Performed By: #### C BC #### [facility] [address] [place] [address] Dr. Gerald Mejia MCV (RBC) [Entitic vol] 95.5 fL Critically high 80.0-94.0 [facility] Comment on above: Performed By: #### C BC #### [facility] [address] [place] [address] Dr. Gerald Mejia MONO # 1.1 103/ul Critically high 0.3-0.[address] [facility] Comment on above: Performed By: #### C BC #### [facility] [address] [place] [address] Dr. Gerald Mejia Monocytes/100 WBC (Bld) 11.1 % Normal 1.7-12.0 [facility] Comment on above: Performed By: #### C BC #### [facility] [address] [place] [address] Dr. Gerald Mejia NEUT # 6.3 103/ul Normal 1.4-6.5 [facility] Comment on above: Performed By: #### C BC #### [facility] [address] [place], [place] [id number] Dr. Gerald Mejia Neutrophils/100 WBC (Bld) 61.6 % Normal 43.0-75.0 [facility] Comment on above: Performed By: #### C BC #### [facility] [address] [place] [address] Dr. Gerald Mejia Platelet mean volume (Bld) [Entitic vol] 9.3 fL Critically low 9.5-13.5 [facility] Comment on above: Performed By: #### C BC #### [facility] [address] [place] [address] Dr. Gerald Mejia PLT 205 103/ul Normal 150-450 [facility] Comment on above: Performed By: #### C BC #### [facility] [address] [place] [address] Dr. Gerald Mejia RBC 4.47 106/ul Critically low 4.70-6.[address] [facility] Comment on above: Performed By: #### C BC #### [facility] [address] [place] [address] Dr. Gerald Mejia WBC 10.2 103/ul Normal 4.0-11.0 [facility] Comment on above: Performed By: #### C BC #### [facility] [address] [place] [address] Dr. Gerald Mejia PROF CHEM 8 (BAS METB)on Anion gap [Moles/Vol] 10.3 mmol/L Normal [facility] Comment on above: Performed By: #### B MP #### [facility] [address] [place] [address] Dr. Gerald Mejia Calcium [Mass/Vol] 9.0 mg/dL Normal 8.5-10.1 [facility] Comment on above: Performed By: #### B MP #### [facility] [address] [place] [address] Dr. Gerald Mejia Chloride [Moles/Vol] 100 mmol/L Normal 98-107 [facility] Comment on above: Performed By: #### B MP #### [facility] [address] [place] [address] Dr. Gerald Mejia CO2 [Moles/Vol] 31.5 mmol/L Normal 21.0-32.0 [facility] Comment on above: Performed By: #### B MP #### [facility] [address] [address] [address] Gerald Mejia Creatinine [Mass/Vol] 0.98 mg/dL Normal 0.70-1.30 [facility] Comment on above: Performed By: #### B MP #### [facility] [address] [address] [address] Gerald Mejia EGFR-AF [place]ORE[place] >60 Normal >=60 [facility] Comment on above: Performed By: #### B MP #### [facility] [address] [address] [address] Gerald Mejia EGFR-NON AF [place]ORE[place] >60 Normal >=60 [facility] Comment on above: Performed By: #### B MP #### [facility] [address] [address] [address] Gerald Mejia Glucose [Mass/Vol] 114 mg/dL Critically high 74-106 [facility] Comment on above: Performed By: #### B MP #### [facility] [address] [address] [address] Gerald Mejia Potassium [Moles/Vol] 3.8 mmol/L Normal 3.5-5.1 [facility] Comment on above: Performed By: #### B MP #### [facility] [address] [address] [address] Gerald Mejia Sodium [Moles/Vol] 138 mmol/L Normal 136-[address] [facility] Comment on above: Performed By: #### B MP #### [facility] [address] [address] [address] Gerald Mejia Urea nitrogen [Mass/Vol] 14.0 mg/dL Normal 7.0-18.0 [facility] Comment on above: Performed By: #### B MP #### [facility] [address] [address] [address] Gerald Mejia Urea nitrogen/Creatinine [Mass ratio] 14.3 mg/mg Normal [facility] Comment on above: Performed By: #### B MP #### [facility] [address] [place] [address] Dr. Gerald Mejia Vital Signs Date Time Vital Sign Value Performing Clinician Facility 12-05-2024 08:39-0400 Body height 170.18 cm [facility] 12-05-2024 08:39-0400 Body mass index (BMI) [Ratio] 30.2 kg/m2 [facility] 12-05-2024 08:39-0400 Body weight 87.65 kg [facility] 12-05-2024 08:39-0400 Diastolic blood pressure 82 mm[Hg] [facility] 12-05-2024 08:39-0400 Heart rate 60 /min [facility] 12-05-2024 08:39-0400 Respiratory rate 12 /min [facility] 12-05-2024 08:39-0400 Systolic blood pressure 137 mm[Hg] [facility] 01-29-2024 14:29-0400 Body height 170.18 cm [facility] 01-29-2024 14:29-0400 Body mass index (BMI) [Ratio] 30.7 kg/m2 [facility] 01-29-2024 14:29-0400 Body weight 89.01 kg [facility] 01-29-2024 14:29-0400 Diastolic blood pressure 95 mm[Hg] [facility] 01-29-2024 14:29-0400 Heart rate 58 /min [facility] 01-29-2024 14:29-0400 Respiratory rate 12 /min [facility] 01-29-2024 14:29-0400 Systolic blood pressure 180 mm[Hg] [facility] 12-03-2023 08:31-0400 Body height 170.18 cm [facility] 12-03-2023 08:31-0400 Body mass index (BMI) [Ratio] 31.1 kg/m2 [facility] 12-03-2023 08:31-0400 Body weight 90.26 kg [facility] 12-03-2023 08:31-0400 Diastolic blood pressure 101 mm[Hg] [facility] 12-03-2023 08:31-0400 Heart rate 57 /min [facility] 12-03-2023 08:31-0400 Respiratory rate 12 /min [facility] 12-03-2023 08:31-0400 Systolic blood pressure 193 mm[Hg] [facility] 05-25-2023 08:30-0400 Body height 170.18 cm Luis Ball Other [facility] Other 05-25-2023 08:30-0400 Body mass index (BMI) [Ratio] 31.35 kg/m2 Luis Ball Other [facility] Other 05-25-2023 08:30-0400 Body weight 90.81 kg Luis Ball Other [facility] Other 05-25-2023 08:30-0400 Diastolic blood pressure 101 mm[Hg] Luis Ball Other [facility] Other 05-25-2023 08:30-0400 Respiratory rate 12 /min Luis Ball Other [facility] Other 05-25-2023 08:30-0400 Systolic blood pressure 197 mm[Hg] Luis Ball Other [facility] Other 11-20-2022 10:00-0400 Body height 170.18 cm Luis Ball Other [facility] Other 11-20-2022 10:00-0400 Body mass index (BMI) [Ratio] 31.29 kg/m2 Luis Ball Other [facility] Other 11-20-2022 10:00-0400 Body weight 90.63 kg Luis Ball Other [facility] Other 11-20-2022 10:00-0400 Diastolic blood pressure 109 mm[Hg] Luis Angel Other [facility] Other 11-20-2022 10:00-0400 Respiratory rate 16 /min Luis Angel Other [facility] Other 11-20-2022 10:00-0400 Systolic blood pressure 193 mm[Hg] Luis Angel Other [facility] Other Encounters Encounter Date Encounter Type Care Provider Facility Start: 12-05-2024 End: 12-05-2024 ambulatory [facility] Work Phone: Start: 12-05-2024 End: 12-05-2024 Patient encounter procedure [facility] Physician [facility] Work Phone: Start: 06-03-2024 Patient encounter procedure [facility] Start: 01-29-2024 End: 01-29-2024 ambulatory [facility] Work Phone: Start: 01-29-2024 End: 01-29-2024 Patient encounter procedure [facility] Physician [facility] Work Phone: Start: 12-03-2023 End: 12-03-2023 Patient encounter procedure [facility] Physician [place] Work Phone: Start: 11-04-2023 Non-patient / Non-visit [facility] [employer] Work Phone: Start: 08-04-2023 End: 08-04-2023 ambulatory Luis Angel Other [facility] Other Start: 08-04-2023 Telephone encounter Luis Angel FP [facility] Start: 05-25-2023 End: 05-25-2023 ambulatory Luis Angel Other [facility] Other Start: 05-25-2023 Patient encounter procedure [facility] Start: 02-02-2023 End: 02-02-2023 ambulatory Luis Angel Other [facility] Other Start: 02-02-2023 Telephone encounter Luis Angel JANETH G [facility] Start: 12-22-2022 End: 12-22-2022 ambulatory Luis Angel Other [facility] Other Start: 12-22-2022 Telephone encounter Luis Angel JANETH G [employer] Start: 2022 End: 12-10-[address] LUIS ANGEL Facility:[facility] Start: 11-20-2022 End: 11-20-2022 ambulatory Luis Angel Other [facility] Other Start: 11-20-2022 Office outpatient vi sit 25 minutes Luis Angel [facility] Start: 06-12-2022 End: 06-13-[address] LUIS ANGEL Facility:[facility] Start: 01-08-2022 End: 01-09-[address] KAUFMAN LISTED REQUEST Facility: Procedures Date Procedure Procedure Detail Performing Clinician Start: 06-12-[address] KAUFMAN L ISTED REQUEST Comment on above: Performed By: #### P SASC #### [facility] [address] [place] [address] Dr. Gerald Mejia Start: 01-08-[address] KAUFMAN L ISTED REQUEST Comment on above: Performed By: #### D ATPSA #### [facility] [address] [place] [address] Dr. Gerald Mejia Plan of Treatment Date Care Activity Detail Author Cefuroxime free [Mas s/volume] in Serum or Plasma [facility] C enter Rheumatoid factor [U nits/volume] in Serum or Plasma [facility] enter [facility] Immunizations Immunization Date Immunization Notes Care Provider Fa ciliyoel 07-24-2021 COVID-19 Vaccine Pfi zer - Documentation Purposes Only Luis Angel Other [facility] 01-10-2021 COVID-19 Vaccine Pfi zer - Documentation Purposes Only Luis Angel Other [facility] 12-20-2020 COVID-19 Vaccine Pfi zer - Documentation Purposes Only Luis Angel Other [facility] Payers Date Payer Category Payer Medicare [id number] 1959 Self-pay 1955 Unknown [id number] 1955 Unknown [id number] Unknown [id number] Social History Date Type Detail Facility Sex Assigned At [facility] Other Start: 1955 Sex Assigned At Male F [facility] Tobacco smoking stat 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 His presentation is atypical in that it will involve joints throughout his body He had elevated hepatic enzymes w/ different Urate lowering medications prompting to d/c treatment. He uses tapering doses of Prednisone for attacks but having repeated attacks since July. Suggest tapering to 5mg daily and don't taper completely off for now [facility] Other Evaluation note Note Date & Type Note Facility Evaluation note No Information [facility] Other Evaluation note Note Date & Type Note Facility Evaluation note Diagnosis Onset Date Adverse effect of prednisone acute Benign prostatic hyperplasia with lower urinary tract symptoms acute Essential (primary) hypertension acute Inflammatory polyarthritis a cute Lumbar spondylosis acute Obesity acute Adverse effect of prednisone acute Essential (primary) hypertension acute Inflammatory polyarthritis a cute Obesity acute [facility] Work Phone: Evaluation note Note Date & Type Note Facility Evaluation note Diagnosis Onset Date Resolution Adverse effect of prednisone acute December 05, 2024 8: 24am Essential (primary) hypertension acute December 05, 2024 8: 24am Gout acute December 05, 2024 8:24am IFG (impaired fasting glucose) acute December 05, 2024 8: 24am Inflammatory polyarthritis acute December 05, 2024 8: 24am Lumbar spondylosis acute December 8:24am Obesity acute December 05, 2024 8:24am [facility] Work Phone: History general Narrative - Reported Note Date & Type Note Facility History general Narrative - Reported Type Medical History Inflammatory polyarthropathy Medical History Bilateral primary os teoarthritis of knee Medical History Lumbar spondylosis Medical History Essential (primary) hypertension Medical History Elevated PSA Surgical History TESTICLE REMOVED 1967 Surgical History TONSILLECTOMY Surgical History COLONOSCOPY Hospitalization History SEE SURGICAL HX [facility] Other Reason for referral (narrative) Note Date & Type Note Facility Reason for referral (narrative) Diagnosis 1 Inflammatory polyart hritis (M06.4) Referral Organization [facility] Referring Provider First Name Luis Referring Provider Last Name Gomez Referring Provider Specialty Internal Medicine Referred Organization [facility] Referred Provider Ashok Borrego Referred Address [address] [place] Referred Provider Specialty Rheumatology Referral Priority Routine [facility] Other Summary Purpose Family History No Family [...] prednisone Essential (primary) hypertension Inflammatory polyarthritis Obesity Chief Complaint Admit Date 6 month f/u December 05, 2024 8:24am Reason for Visit Admit Date Adverse effect of prednisone December 05 8:24am Essential (primary) hypertension December 8:24am Gout December 05, 2024 8:24am IFG (impaired fasting glucose) December 05, 2024 8:24am Inflammatory polyarthritis December 05, 2024 8:24am Lumbar spondylosis December 05, 2024 8:24am Obesity December 05, 2024 8:24am Additional Source Comments REASON FOR VISIT (unrecogniz ed section and content) 6 MONTH FOLLOW UPquestionref erralwellnessLab results (unrecognized sect ion and content) No Status Records Found INFORMATION SOURCE (unrecogn ized section and content) DATE CREATED AUTHOR 12/12/2022 [facility] Care Teams (unrecognized sec tion and content) Team Status: Active Member Role Status Dates Luis Angel DO Primary Care Provider Active Team Status: Inactive Member Role Status Dates Luis Angel DO Primary Care Provide r, Attending Provider Active Start: December 05, 2024 End: December 05, 2024 Team Status: Active Member Role Status Dates [...] January 29, 2024 End: January 29, 2024 Team Status: Inactive Member Role Status Dates Luis Angel , DO Primary Care Provide r, Attending Provider Active Start: December 05, 2024 End: December 05, 2024 Goals (unrecognized section and content) Goals [...] BE BASED ON THE PRIMARY CLINICAL RECORDS. [employer] provides no warranty or guarantee of the accuracy or completeness of information in this document.
[2024-12-28 11:08] LABS: Basophils Percent Auto 0.3 % (0.2-2.0); Eosinophils Absolute Auto 0.3 10^3/uL (0.0-0.7); Eosinophils Percent Auto 2.9 % (0.9-7.0); Hematocrit 42.8 % (42.0-54.0); Hemoglobin 14.3 g/dL (14.0-18.0); Immature Granulocytes Abs Auto 0.07 10^3/uL (0.00-0.03); Immature Granulocytes Pct Auto 0.7 % (0.0-0.5); Lymphocytes Absolute Auto 2.2 10^3/uL (1.2-3.8); Lymphocytes Percent Auto 23.3 % (20.5-60.0); Mean Corpuscular HGB Conc 33.4 g/dL (29.9-35.2); Mean Corpuscular Hemoglobin 30.5 pg (25.9-34.0); Mean Corpuscular Volume 91.3 fL (80.0-94.0); Mean Platelet Volume 8.8 fL (9.5-13.5); Monocytes Absolute Auto 0.8 10^3/uL (0.3-0.8); Monocytes Percent Auto 8.9 % (1.7-12.0); Neutrophils Percent Auto 63.9 % (43.0-75.0); Platelet Count 196 10^3/uL (150-450); Red Blood Count 4.69 10^6/uL (4.70-6.10); Red Cell Distribution Width 13.6 % (11.0-15.0); White Blood Count 9.4 10^3/uL (4.0-11.0)
[2024-12-28 11:14] LABS: Erythrocyte Sedimentation Rate 43 mm/hr (<=20)
[2024-12-28 11:38] LABS: Alanine Aminotransferase 23 U/L (16-63); Albumin Globulin Ratio 0.8; Albumin Level 3.3 g/dL (3.4-5.0); Alkaline Phosphatase 74 U/L (46-116); Anion Gap 14.6; Aspartate Amino Transferase 17 U/L (15-37); BUN Creatinine Ratio 13.8; Bilirubin Total 0.6 mg/dL (0.2-1.0); Chloride 103 mmol/L (98-107); Chol HDL Ratio 4.1; Cholesterol 232 mg/dL (<=200); Estimated GFR (African America >60 (>=60 mL/min/1.73m^2); Estimated GFR (Non-African Ame >60 (>=60 mL/min/1.73m^2); Glucose 108 mg/dL (74-106); HDL Cholesterol 57 mg/dL (40-60); Potassium 3.6 mmol/L (3.5-5.1); Sodium 143 mmol/L (136-145); Total Protein 7.3 g/dL (6.4-8.2); Triglycerides 182 mg/dL (<=150); Uric Acid 8.5 mg/dL (3.5-7.2); VLDL CHOLESTEROL 36.4 mg/dL
[2024-12-28 12:19] LABS: Prostate Specific Antigen Scrn 4.16 ng/mL (<=4.00)
[2024-12-29 06:08] LABS: Rheumatoid Factor (RF) 12.1 IU/mL (<14.0)
[2024-12-29 12:08] LABS: ANA Direct Negative (Negative)
== END 2024-12-28 10:39 | disposition home or self-care (01) ==
LOC: LAB 10:42
PROVIDERS: PCP Internal Medicine; Visit Provider Internal Medicine
DX: Z12.5 Encounter for screening for malignant neoplasm of prostate (principal); R73.01 Impaired fasting glucose; I10 Essential (primary) hypertension; E78.00 Pure hypercholesterolemia, unspecified; M06.4 Inflammatory polyarthropathy; M10.9 Gout, unspecified
CPT/HCPCS: 36415; 80053; 80061; 84550; 85025; 85652; 86038; 86140; 86431; G0103

== ENCOUNTER 2025-08-01 08:08 | Outpatient (OUT) | payer MEDICARE, SELFPAY ==
--- OUTSIDE RECORDS SUMMARY | 2025-08-01 08:18 | XMS_ITS | CCD ---
Author Organization [facility] CliniSyak Care Team Providers Care Relay Telegrapher Name Role Phone Luis Dyer Unavailable REQUEST, DR KAUFMAN LISTED Consulting Unavaila ble REQUEST, DR KAUFMAN LISTED Admitting Unavaila ble REQUEST, DR KAUFMAN LISTED Attending Unavaila ble BALL, DR ANDUJAR Primary Care Unavailable GOMEZ, DR ANDUJAR Admitting Unavailable BALL, DR ANDUJAR Attending Unavailable BALL, DR ANDUJAR Consulting Unavailable BALL, DR ANDUJAR Primary Care Unavailable BALL, DR ANDUJAR Admitting Unavailable BALL, DR ANDUJAR Attending Unavailable BALL, DR ANDUJAR Consulting Unavailable Ball Luis SANTOS Primary Care Provider Luis Dyer DO Attending Provider Allergies Allergy ClassificationReported Allergen(s)Allergy TypeDate of OnsetReaction(s) Facility (8 sources)ColchicineDrug Orfxpjy80-91-7113Iqeuopk, Unknown ReactionGrand [facility] (8 sources)febuxostatDrug Vyfvxub74-65-7837Rtkulqp, Unknown ReactionGrand Lake Joint [facility] District [facility] Hospital Medications Current Medications MedicationDrug Class(es)DatesSig (Normalized)Sig (Original)amLODIPine 5 mg oral tablet (5 sources)Dihydropyridine Calcium Channel BlockerStart: 75-31-0515ledf 1 tablet by mouth once dailyAmlodipine 5 mg tablet Active 0 .ROUTE .COMPLEX 90 November 06, 2024 1:59pm TAKE 1 TABLET BY MOUTH EVERY DAY Complies with drug therapy Start: 12-03-2023 End: 24-88-8541uknt 1 tablet by mouth once dailyAmlodipine 5 mg tablet Discontinued 5 MG PO Daily 90 90 December 02, 2023 11:00pm November 06, 2024 1:59pm amoxicillin 875 mg / clavulanate 125 mg oral tablet (1 source)Penicillin-class AntibacterialStart: 53-65-2325higj 1 tablet by mouth every twelve hoursAmoxicillin-Pot Clavulanate 875-125 mg tablet Active 1 TAB PO Every 12 hours 20 10 0 June 08, 2025 12:00am Complies with drug therapy carvedilol 12.5 mg oral tablet (15 sources)alpha-Adrenergic Ariadna, beta-Adrenergic BlockerStart: 11-06-2024 take 1 tablet by mouth twice dailyCarvedilol 12.5 mg tablet Active 0 .ROUTE .COMPLEX 180 3 November 06, 2024 1:59pm TAKE 1 TABLET BY MOUTH TWICE A DAY Complies with drug therapyStart: 01-29-2024 End: 19-13-7249vvcp 1 tablet by mouth twice dailyCarvedilol 12.5 mg tablet Discontinued 12.5 MG PO Twice daily 180 90 3 January 29, 2024 2:04pm 2024 1:59pmStart: 11-04-2023 End: 90-14-0738jchx 1 tablet by mouth twice dailyCarvedilol 12.5 mg tablet Discontinued 0 .ROUTE .COMPLEX 180 3 November 04, 2023 8:58am January 29, 2024 2:43pm TAKE 1 TABLET BY MOUTH TWICE A DAYStart: 11-04-2023 End: 90-18-7068mulq 1 tablet by mouth twice dailyCarvedilol 12.5 mg tablet Discontinued 12.5 MG PO Twice daily November 03, 2023 11:00pm November 04, 2023 8:58amtake 1 tablet by mouth twice dailyCarvedilol 12.5 MG TAKE 1 TABLET BY MOUTH TWICE A DAY Activefluorouracil 50 mg/ml topical cream (2 sources)Nucleoside Metabolic InhibitorStart: 58-34-8954Bbxbhrklphfw 5 % cream Active 1 APPLIC TOPICAL Twice daily 40 14 0 June 06, 2024 12:00am Complies with drug therapypredniSONE 10 mg oral tablet (14 sources)Start: 07-61-4936snai 1-2 tablets by mouth once daily as needed for painPrednisone 10 mg tablet Active 0 .ROUTE .COMPLEX 60 December 25, 2024 6:37am TAKE 1 - 2 TABLETS BY MOUTH ONCE A DAY NEEDED FOR PAIN Complies with drug therapyStart: 12-25-2024 End: 58-42-3418jncw 1 tablet by mouth once daily as needed for painPrednisone 10 mg tablet Discontinued 10 MG PO Daily as needed for pain 60 30 December 25, 2024 6:36am December 25, 2024 6:37amStart: 09-06-2024 End: 79-31-2791wray 1-2 tablets by mouth once daily as needed for painPrednisone 10 mg tablet Discontinued 0 .ROUTE .COMPLEX 60 2 September 06, 2024 8:46pm December 0557:29am TAKE 1 - 2 TABLETS BY MOUTH ONCE A DAY NEEDED FOR PAINStart: 06-06-2024 End: 90-23-1636njom 2 tablets by mouth once daily as needed for painPrednisone 10 mg tablet Discontinued 0 PO .COMPLEX as needed for pain 60 30 2 June 06, 2024 9:04am September 06, 2024 8:46pm TAKE 1- 2 TABLET BY MOUTH DAILY NEEDED FOR PAIN;Start: 03-23-2024 End: 47-66-3118hjqf 1 tablet by mouth once dailyPrednisone 20 mg tablet Discontinued 0 .ROUTE .COMPLEX 30 2 March 23, 2024 6:39am June 06, 2024 9:06am TAKE 1 TABLET BY MOUTH EVERY DAY DIRECTED FOR 30 DAYSStart: 09-25-2023 End: 46-31-4530Lqcfjzosbh 20 mg tablet Discontinued 20 MG PO As Directed September 25, 2023 12:00am March 23, 2024 6:40ampredniSONE 10 MG TAKE 2 TABS 3 TIMES DAILY X5DAYS,2 TABS TWICE DAILY X5DAYS,2 TABS DAILY X5DAYS NEEDED FOR GOUT for 15 ActivepredniSONE 10 MG TAKE 2 TABS 3 TIMES DAILY X5 DAYS,2 TABS TWICE DAILY X5 DAYS,2 TABS DAILY X5 DAYS NEEDED FOR GOUT ActivetraZODone hydrochloride 50 mg oral tablet (5 sources)Serotonin Reuptake InhibitorStart: 24-16-6621Mdjfyxdrf 50 mg tablet Active 50 MG PO Daily at bedtime November 03, 2023 11:00pm TAKE 1/2 - 1 TABLETBY MOUTH EVERYDAY AT BEDTIME Orally Once a day Complies with drug therapyStart: 95-99-6243ltfa 0.5-1 tablets by mouth once at bedtimetraZODone HCl 50 MG 1/2 - 1 tablet Orally q HS for 30 days May, Active Completed/Discontinued Medications MedicationDrug Class(es)DatesSig (Normalized)Sig (Original)sulfamethoxazole 800 mg / trimethoprim 160 mg oral tablet (2 sources)Dihydrofolate Reductase Inhibitor Antibacterial, Sulfonamide AntimicrobialStart: 12-29-2024 End: 15-46-0036roiv 1 tablet by mouth twice dailySulfamethoxazole-Trimethoprim 800-160 mg tablet Discontinued 1 TAB PO Twice daily 56 28 0 December 9:31am June 08, 2025 8:37am Problems Problem ClassificationProblemDateDocumented DateEpisodic/ChronicBlindness and vision defects (2 sources)Blurring of visual image; Translations: [Other visual disturbances] 34-11-4199WhybaqzzWspbhqca mellitus without complication (4 sources)Impaired fasting glycemia; Translations: [Impaired fasting glucose] 17-46-4092ZhamjascLatqyipwi of lipid metabolism (2 sources)Hypercholesterolemia; Translations: [Pure hypercholesterolemia, unspecified]16-54-1004HgepibxA Codes: Adverse effects of medical drugs (7 sources)Prednisone adverse reaction; Translations: [Adverse effect of glucocorticoids and synthetic analogues, initial encounter]64-54-3084Waqkeejw Essential hypertension (18 sources)Essential hypertension; Translations: [Essential (primary) hypertension]Onset: 88-61-7142LlcjoqyIpvgtoqedxths symptoms and ill-defined conditions (2 sources)NocturiaEpisodicGout and other crystal arthropathies (4 sources)Gout; Translations: [Gout, unspecified]85-19-7811VudqoquVaubssklqqb of prostate (11 sources)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; Translations: [Benign prostatic hyperplasia with lower urinary tract symptoms]ChronicMiscellaneous mental health disorders (3 sources)Primary insomnia; Translations: [Primary insomnia]Chronic Osteoarthritis (7 sources)Osteoarthritis of knee; Translations: [Bilateral primary osteoarthritis of knee]ChronicOther aftercare (1 source)Other residential (current) drug therapyEpisodicOther connective tissue disease (2 sources)Personal history of other diseases of the musculoskeletal system and connective tissueEpisodicOther nervous system disorders (2 sources)Mass lesion of brain; Translations: [Other specified disorders of brain]57-65-1945ZaqfhaiMwtpi nutritional; endocrine; and metabolic disorders (3 sources)Obese abdomen; Translations: [Localized adiposity]91-43-5057Kypozlx Other nutritional; endocrine; and metabolic disorders (4 sources)Obesity; Translations: [Obesity, unspecified]42-83-7201VcjslquVmwfi nutritional; endocrine; and metabolic disorders (3 sources)Obesity, unspecified; Translations: [Obesity, unspecified]12-03-2023 ChronicOther screening for suspected conditions (not mental disorders or infectious disease) (14 sources)Raised prostate specific antigen; Translations: [Elevated prostate specific antigen [PSA]]Onset: 14-43-3780FtwtszihRdbqsgg on above:PSA: 2.9 - 07/2021, 3.39 - 06/2022, 3.84 - 07/2023, 4.16 - 12/2024Other upper respiratory infections (1 source)Acute sinusitis; Translations: [Acute sinusitis, unspecified] 69-03-5487LzobkpmdJhiihckrye arthritis and related disease (20 sources)Inflammatory polyarthropathy; Translations: [Inflammatory polyarthropathy]Onset: 59-95-8762FizfpkgMmarqmyupzr; intervertebral disc disorders; other back problems (13 sources)Lumbar spondylosis; Translations: [Spondylosis without myelopathy or radiculopathy, lumbar region]Chronic Results Test NameValueInterpretationReference RangeFacilityRHEUMATOID FACTORon 27-78-3386AO Latex Turbid.11.7 IU/mLNormal<14.0The [facility] HospitalComment on above:Performed By: #### RF #### [facility] [address] [place] [address] Dr. Gerald Puckett 21-59-5722PLK4.9 mg/dLCritically high<=1.0The [facility] HospitalComment on above:Performed By: #### CRP #### [facility] [address] [address] [address] Gerald Kc AUTO DIFFon 52-58-2597WULP #0.0 103/ulNormal0.0-0.1The [facility] HospitalComment on above:Performed By: #### CBC #### [facility] [address] [place] [address] Dr. Gerald MejiaBasophils/100 WBC (Bld)0.3 %Normal0.2-2.0The [facility] Comment on above:Performed By: #### CBC #### [facility] [address] [place] [address] Dr. Gerald Hurt #0.1 103/ulNormal0.0-0.7The [facility] HospitalComment on above: Performed By: #### CBC #### [facility] [address] [place] [address] Dr. Gerald Sunosinophils/100 WBC (Bld)1.3 %Normal0.9-7.0[facility] Comment on above:Performed By: #### CBC #### [facility] [address] [place] [address] Dr. Gerald Sunrythrocyte distribution width (RBC) [Ratio]12.2 %Gyaqzp88.0-15.0 The [facility] HospitalComment on above:Performed By: #### CBC #### [facility] [address] [place] [address] Dr. Gerald MejiaHematocrit (Bld) [Volume fraction]42.7 %Mxtigo63.0-54.0The [facility] HospitalComment on above:Performed By: #### CBC #### [facility] [address] [place] [address] Dr. Gerald MejiaHemoglobin (Bld) [Mass/Vol]14.4 g/zJDevccs14.0-18.0The [facility] HospitalComment on above:Performed By: #### CBC #### [facility] [address] [place] [address] Dr. Gerald Duenas #0.10 10e3/ulCritically high0.00-0.03The [facility] Comment on above:Performed By: #### CBC #### [facility] [address] [place] [address] Dr. Gerald Duenas %1.0 %Critically high0.0-0.5The [facility] HospitalComment on above:Performed By: #### CBC #### [facility] [address] [place] [address] Dr. Gerald Bedoya #2.5 103/ulNormal1.2-3.8ThMercy Health Perrysburg HospitalComment on above:Performed By: #### CBC #### [facility] [address] [place] [address] Dr. Gerald Caicedomphocytes/100 WBC (Bld)24.7 %Qtayun94.5-60.0[facility] HospitalComment on above:Performed By: #### CBC #### [facility] [address] [place] [address] Dr. Gerald Yarbrough DIFF REQNONormalThe [facility] HospitalComment on above: Performed By: #### CBC #### [facility] [address] [place] [address] Dr. Gerald Mata (RBC) [Entitic mass]32.2 tdFzvtjj28.9-34.0The [facility] HospitalComment on above:Performed By: #### CBC #### [facility] [address] [place] [address] Dr. Gerald Mata (RBC) [Mass/Vol]33.7 g/wEMczezx44.9-35.2[facility] HospitalComment on above:Performed By: #### CBC #### [facility] [address] [place] [address] Dr. Gerald Clark (RBC) [Entitic vol]95.5 fLCritically high80.0-94.0[facility] HospitalComment on above:Performed By: #### CBC #### [facility] [address] [place] [address] Dr. Gerald Wayne #1.1 103/ulCritically high0.3-0.8ThMercy Health Perrysburg Hospital Comment on above:Performed By: #### CBC #### [facility] [address] [place] [address] Dr. Gerald Graceocytes/100 WBC (Bld)11.1 %Normal1.7-12.0[facility] Comment on above:Performed By: #### CBC #### [facility] [address] [place] [address] Dr. Gerald Harvey #6.3 103/ulNormal1.4-6.5The [facility] HospitalComment on above:Performed By: #### CBC #### [facility] [address] [place] [address] Dr. Gerald MejiaNeutrophils/100 WBC (Bld)61.6 %Bsnunt85.0-75.0The [facility] HospitalComment on above:Performed By: #### CBC #### [facility] [address] [place] [address] Dr. Gerald MejiaPlatelet mean volume (Bld) [Entitic vol]9.3 fLCritically low 9.5-13.5The [facility] HospitalComment on above:Performed By: #### CBC #### [facility] [address] [place] [address] Dr. Gerald MejiaPLT205 103/vqLnyddf357-671Vjb [facility] HospitalComment on above: Performed By: #### CBC #### [facility] [address] [place] [address] Dr. Gerald MejiaRBC4.47 106/ulCritically low4.70-6.10The [facility] HospitalComment on above:Performed By: #### CBC #### [facility] [address] [place] [address] Dr. Gerald MejiaWBC10.2 103/ulNormal4.0-11.0The [facility] HospitalComment on above:Performed By: #### CBC #### [facility] [address] [place] [address] Dr. Gerald MejiaPROF CHEM 8 (BAS METB)on 93-85-0674Prwox gap [Moles/Vol]10.3 mmol/LNormalThe [facility] HospitalComment on above:Performed By: #### BMP #### [facility] [address] [place] [address] Dr. Gerald MejiaCalcium [Mass/Vol]9.0 mg/dLNormal8.5-10.1The [facility] Comment on above:Performed By: #### BMP #### [facility] [address] [place] [address] Dr. Gerald MejiaChloride [Moles/Vol]100 mmol/DTibqbx41-962Wba [facility] Comment on above:Performed By: #### BMP #### [facility] [address] [place] [address] Dr. Gerald MejiaCO2 [Moles/Vol]31.5 mmol/CPcwcwd44.0-32.0The [facility] Comment on above:Performed By: #### BMP #### [facility] [address] [address] [address] Gerald MejiaCreatinine [Mass/Vol]0.98 mg/dLNormal0.70-1.30The [facility] HospitalComment on above:Performed By: #### BMP #### [facility] [address] [place] [address] Dr. Duarte ChangEGFR-AF ARGENTINE>60Normal>=60The [facility] HospitalComment on above:Performed By: #### BMP #### [facility] [address] [place] [address] Dr. Gerald SunGFR-NON AF ARGENTINE>60Normal>=60The [facility] HospitalComment on above:Performed By: #### BMP #### [facility] [address] [place] [address] Dr. Gerald MejiaGlucose [Mass/Vol]114 mg/dLCritically fzqa89-824Fuy [facility] HospitalComment on above:Performed By: #### BMP #### [facility] [address] [place] [address] Dr. Gerald MejiaPotassium [Moles/Vol]3.8 mmol/LNormal3.5-5.1The [facility] Comment on above:Performed By: #### BMP #### [facility] [address] [address] [address] Gerald MejiaSodium [Moles/Vol]138 mmol/SAjrvdn037-192Ssp [facility] Comment on above:Performed By: #### BMP #### [facility] [address] [address] [address] Gerald MejiaUrea nitrogen [Mass/Vol]14.0 mg/dLNormal7.0-18.0[facility] HospitalComment on above:Performed By: #### BMP #### [facility] [address] [address] [address] Gerald MejiaUrea nitrogen/Creatinine [Mass ratio]14.3 mg/mgNoParkview HealthComment on above:Performed By: #### BMP #### [facility] [address] [address] [address] Gerald Mejia Vital Signs Date TimeVital SignValuePerforming DgqjofdlnWtgcqbxr36-60-0388 08:37-0500Body pztnem925.18 cmBenjamin Ball DO Work Phone: [phone] [place], [place] 5743211-06-2025 08:37-0500 Body mass index (BMI) [Ratio]30.5 kg/d3Byqgpque Ball DO Work Phone: [phone])[address] [place], [place] 5743211-06-2025 08:37-0500 Body rskeel76.5 kgBenjamin Ball DO Work Phone: [phone]11-06-2025 08:37-0500 Diastolic blood qizcreio58 mm[Hg]Luis Ball DO Work Phone: 1(969)[address] [place], [place] 5743211-06-2025 08:37-0500 Heart rate55 /minBenjamin Ball DO Work Phone: [phone])[address] [place], [place] 5743211-06-2025 08:37-0500 Respiratory rate12 /minBenjamin Ball DO Work Phone: [phone] [place], [place] 5743211-06-2025 08:37-0500 Systolic blood pjnwiatb468 mm[Hg]Luis Ball DO Work Phone: [phone])[address] [place], [place] 5743205-05-2025 08:39-0400 Body .18 cmGrand [facility]05-05[facility]2025 08:39-0400Body mass index (BMI) [Ratio]30.2 kg/n1QkmitmzrjGrand [facility]05-05-2025 08:39-0400Body oaktgg92.65 [facility]05-05-2025 08:39-0400Diastolic blood jonkobyx78 mm[Hg][facility] 12-05-2024 08:39-0400Heart rate60 /[facility] 12-05-2024 08:39-0400Respiratory rate12 /[facility] 12-05-2024 08:39-0400Systolic blood wtnpinbf656 mm[Hg][facility]06-28-2024 14:29-0400Body .18 cmGrand [facility]06-28-2024 14:29-0400Body mass index (BMI) [Ratio]30.7 kg/m0MevvefzvkGrand [facility]06-28-2024 14:29-0400Body okcwjn06.01 [facility]06-28-2024 14:29-0400Diastolic blood btxakzbn13 mm[Hg] [facility]06-28-2024 14:29-0400Heart rate58 /[facility]06-28-2024 14:29-0400Respiratory rate12 /[facility]06-28-2024 14:29-0400Systolic blood mm[Hg] [facility]05-02-2024 08:31-0400Body vjolaj775.18 cm [facility]05-02-2024 08:31-0400Body mass index (BMI) [Ratio]31.1 kg/q7McgrfmcomGrand [facility] Joint [facility] District [facility] Hospital05-02-2024 08:31-0400Body wdohwr88.26 [facility]05-02-2024 08:31-0400Diastolic blood ixviuipe004 mm[Hg][facility]05-02-2024 08:31-0400 Heart rate57 /[facility]05-02-2024 08:31-0400 Respiratory rate12 /[facility]05-02-2024 08:31-0400 Systolic blood drigktkm792 mm[Hg][facility]10-23-2023 08:30-0400Body jhwazy587.18 cmBenjamin Ball Other [employer] Other 10-23-2023 08:30-0400Body mass index (BMI) [Ratio] 31.35 kg/e0Ruzoqiyo Ball Other [employer] Other 10-23-2023 08:30-0400Body sjexez37.81 kgBenjamin Ball Other [employer] Other 10-23-2023 08:30-0400Diastolic blood gxcbords256 mm[Hg]Luis Ball Other [employer] Other 10-23-2023 08:30-0400Respiratory rate12 /minBenjamin Ball Other [employer] Other 10-23-2023 08:30-0400Systolic blood arsferwx489 mm[Hg] Luis Ball Other [employer] Other 04-20-2023 10:00-0400Body xriaph521.18 cmBenjamin Ball Other [employer] Other 04-20-2023 10:00-0400Body mass index (BMI) [Ratio] 31.29 kg/e6Obsqswvd Ball Other [employer] Other 04-20-2023 10:00-0400Body .63 kgBenjamin Ball Other [employer] Other 04-20-2023 10:00-0400Diastolic blood ooquvntd879 mm[Hg]Luis Ball Other [employer] Other 04-20-2023 10:00-0400Respiratory rate16 /minBenjamin Ball Other [facility] [employer] Other 04-20-2023 10:00-0400Systolic blood cqcpyzrr563 mm[Hg] Luis Dyer Other [facility] [employer] Other Encounters Encounter DateEncounter TypeCare ProviderFacilityStart: 06-08-2025 End: 05-78-6610sspetxryulJflcotvq Ball DO Work Phone: -[facility]Start: 06-08-2025 End: 59-17-2492Qwjxzgh encounter procedureBescardick Dyer DO-[facility] Work Phone: Start: 12-05-2024 End: 60-05-3216txprnrkcagHhdycqjicLouis [facility] Work Phone: Start: 12-05-2024 End: 88-54-5573Yveqqvu encounter procedureFirflashs Physician Group-[facility] Work Phone: Start: 88-57-9227Dfapemq encounter procedureUniversity Hospitals Cleveland Medical Centertart: 01-29-2024 End: 38-72-4962jxpkoyewcbKfdasuwohLouis [facility] Work Phone: Start: 01-29-2024 End: 40-82-8209Vnkogrt encounter procedureFircentra [facility] Work Phone: Start: 12-03-2023 End: 55-44-6511Oyhbqqo encounter procedureFircentra [facility] Phys[facility] Work Phone: Start: 54-70-3615Weh-patient / Non-visitFirtho Physician Group-[facility] [employer] Work Phone: Start: 08-04-2023 End: 08-61-7607hxjczugfjnQrvephwh Ball Other [facility] [employer] Other Start: 32-57-3418Crkbkozss encounterBescardick DyerFPAtrium Health [facility] Medical Centertart: 05-25-2023 End: 21-98-2053agdxljlasyCjjiparu Ball Other [employer] Other Start: 80-94-5229Jscdvzg encounter procedureBendick Dyer Medical ClinicStart: 02-02-2023 End: 41-16-8109urblhshknvArlnznqp Ball Other [employer] Other Start: 52-62-3829Kvbdehpla encounterBendick Dyer Medical ClinicStart: 12-22-2022 End: 67-66-6195lkutwppnuoZfrdprqv Ball Other [employer] Other Start: 56-06-8894Gqkyqwsgu encounterBendick CooperG Referral CoordinatorStart: 2022 End: 40-96-5351jstgqpzataUW LUIS BALLFacility:E0Ghwto: 11-20-2022 End: 73-41-0078zeaicmmcrfWfjwmdbf Ball Other [employer] Other Start: 56-94-3676Pkcvhp outpatient visit 25 minutes Luis Dyer [facility] ClinicStart: 06-12-2022 End: 85-07-0298icgwukjkfoUU LUIS BALLFacility:F9Kobjb: 01-08-2022 End: 52-40-3649ndgggxkqfxTK NONE LISTED REQUESTFacility:H1 Procedures DateProcedureProcedure DetailPerforming ClinicianStart: 69-60-2912HQD screening DR NONE LISTED REQUESTComment on above:Performed By: #### PSASC #### [facility] [address] [place] [address] Dr. Gerald MejiaStart: 76-31-2707DOV screeningDR NONE LISTED REQUESTComment on above:Performed By: #### DATPSA #### [facility] [address] [place] [address] Dr. Gerald Mejia Plan of Treatment DateCare ActivityDetailAuthorCefuroxime free [Mass/volume] in Serum or Plasma [facility] HospitalRheumatoid factor [Units/volume] in Serum or PlasmaHealthmark Regional [facility] Center Immunizations Immunization DateImmunizationNotesCare KkpppzsgZxyjuwtg38-98-6084VAPPN-03 Vaccine Pfizer - Documentation Purposes OnlyBescardick Dyer Other [facility]06-10-2021COVID-19 Vaccine Pfizer - Documentation Purposes [facility] Other [facility]05-20-2021COVID-19 Vaccine Pfizer - Documentation Purposes OnlyBeOnslow [facility] Hospital Other [facility] Payers DatePayer CategoryPayerPolicy [id number] Social History DateTypeDetailFacilitySex Assigned At [employer] Other Start: 59-31-3700Cfy Assigned At [facility] HospitalTobacco smoking status NHISUnknown if ever smoked [facility] Work Phone: Start: 71-59-7594HwuZzjk (finding)[facility] Evaluation note 05-25-2023 Note Date & XocjHmysForgfzen21-12-5331 Evaluation note* Encounter Date Diagnosis Assessment Notes Treatment Notes Treatment Clinical Notes May, Essential (primary) hypertension (ICD-10 - I10) This patient is instructed to consume a healthy, low-fat, low-salt diet. They are also encouraged to continue exercise to achieve/maintain a normal BMI. May,Inflammatory polyarthritis (ICD-10 - M06.4)ROM exercises, heat/ice and Voltaren Gel Continue Prednisone as needed. Discussed adverse effects of prolonged steroid use. He declines referral to Rheum Check ESR and RA May,Lumbar spondylosis (ICD-10 - M47.816)The patient is instructed to avoid bending, twisting or lifting. They are to use intermittent heat and ice as needed. They may schedule a massage or gentle manipulation. They may safely use Tylenol as needed. May,ilateral primary osteoarthritis of knee (ICD-10 - M17.0)ROM exercises, quad exercises, ice/heat and Tylenol. Avoid squatting or kneeling May,Nocturia (ICD-10 - R35.1) May,enign prostatic hyperplasia with lower urinary tract symptoms (ICD- 10 - N40.1)Symptoms tolerable, yearly PSA May,rimary insomnia (ICD-10 - F51.01) May,Medicare annual wellness visit, subsequent (ICD-10 - Z00.00) [...] reviewed and amended by provider signed below. May,High risk medication use (ICD-10 - Z79.899) May,Hx of gout (ICD-10 - Z87.39)Check UA and eSR May,Screening PSA (prostate specific antigen) (ICD-10 - Z12.5)Yearly PSA - declines ALESSIA [employer] Other Evaluation note 11-20-2022 Note Date & [id number] Evaluation note* Encounter Date Diagnosis Assessment Notes Treatment Notes Treatment Clinical Notes Nov, Essential (primary) hypertension (ICD-10 - I10) This patient is instructed to consume a healthy, low-fat, low-salt diet. They are also encouraged to continue exercise to achieve/maintain a normal BMI. Monitor home BP, stop in office for recheck Goal < 135/85 Nov,Inflammatory polyarthritis (ICD-10 - M06.4)Ice, ROM exercises Taper steroids to 5-10mg daily Questionable dx of Gout, refer to Rheumatology for evaluation and treatment guidelines Nov,Lumbar spondylosis (ICD-10 - M47.816)The patient is instructed to avoid bending, twisting or lifting. They are to use intermittent heat and ice as needed. They may schedule a massage or gentle manipulation. They may safely use Tylenol as needed. Nov,ilateral primary osteoarthritis of knee (ICD-10 - M17.0)Quad exercises, ice/heat and avoid squatting/kneeling Nov,Nocturia (ICD-10 - R35.1) Nov,enign prostatic hyperplasia with lower urinary tract symptoms (ICD- 10 - N40.1)Symptoms tolerable Yearly PSA and ALESSIA Nov,Hx of gout (ICD-10 - Z87.39)Dx by [employer] Analyst in [place]. His presentation is atypical in that it will involve joints throughout his body He had elevated hepatic enzymes w/ different Urate lowering medications prompting to d/c treatment. He uses tapering doses of Prednisone for attacks but having repeated attacks since July. Suggest tapering to 5mg daily and don't taper completely off for now [employer] Other Evaluation note Note Date & TypeNoteFacilityEvaluation noteNo InformationNortWayne Memorial Hospital Team [employer] Other Evaluation note Note Date & TypeNoteFacilityEvaluation note* Diagnosis Onset Date Resolution Status Adverse effect of prednisone acuteBenign prostatic hyperplasia with lower urinary tract symptomsacute Essential (primary) hypertensionacuteInflammatory polyarthritisacuteLumbar spondylosisacuteObesityacuteAdverse effect of prednisoneacuteEssential (primary) hypertensionacuteInflammatory polyarthritisacuteObesityacute [facility] Work Phone: Evaluation note Note Date & TypeNoteFacilityEvaluation note* Diagnosis Onset Date Resolution Status Admit Date Adverse effect of prednisone acuteMay 2024 8:24amEssential (primary) hypertensionacuteMay 2024 8:24amGoutacuteMay 2024 8:24amIFG (impaired fasting glucose)acuteMay 2024 8:24amInflammatory polyarthritisacuteMay 2024 8:24amLumbar spondylosis acuteMay 2024 8:24amObesityacuteMay 2024 8:24am [facility] Work Phone: Evaluation note Note Date & TypeNoteFacilityEvaluation note* Diagnosis Onset Date Resolution Status Admit Date Adverse effect of prednisone acuteNovember 2024 8:23amEssential (primary) hypertensionacuteNovember 2024 8:23amGoutacuteNovember 2024 8:23amIFG (impaired fasting glucose)acute November 2024 8:23amInflammatory polyarthritisacuteNovember 2024 8:23amLumbar spondylosisacuteNovember 2024 8:23amMedicare annual wellness visit, subsequentacuteNov2024 8:23amObesityacuteNovember 2024 8:23amScreening for colon canceracuteNov2024 8:23amScreening PSA (prostate specific antigen)acuteNov2024 8:23amAcute sinusitis noneactiveNov2024 8:23am [facility] Work Phone: History general Narrative - Reported Note Date & TypeNoteFacilityHistory general Narrative - Reported* Type Description Date Medical History Inflammatory polyarthropathy Medical HistoryBilateral primary osteoarthritis of kneeMedical HistoryLumbar spondylosisMedical HistoryEssential (primary) hypertensionMedical History Elevated PSASurgical HistoryTESTICLE [id number] HistoryTONSILLECTOMY Surgical HistoryCOLONOSCOPYHospitalization HistorySEE SURGICAL HX [employer] Other Reason for referral (narrative) Note Date & TypeNoteFacilityReason for referral (narrative)* Reason Evaluation and treat ment of inflammatory arthritis Hx of gout Diagnosis 1 Inflammatory polyart hritis (M06.4) Referral Organization [facility] Referring Provider First Name Luis Referring Provider Last Name Gomez Referring Provider Specialty Internal Me dicine Referred Organization [facility] Referred Provider Ashok Borrego Referred Address [address],[place],[address] Referred Provider Specialty Rheumatology Referral Priority Routine [facility] Team [employer] Other Reason for referral (narrative) Note Date & TypeNoteFacilityReason for referral (narrative)No reason for referral information availableUniversity Hospitals [facility] Work Phone: Summary Purpose Family History No Family History Records Found Advance Directives Advance Directive Response Recorded Date/ Time Advance Directives No August 27, 2023 3:49pm Advance Directive Response Recorded Date/ Time Advance Directives No August 27, 2023 2:49pm Chief Complaint and Reason for Visit Chief Complaint Amb Documentation 6 month follow up possible mini strokesReason for VisitAdverse effect of prednisone Benign prostatic hyperplasia with lower urinary tract [...] 2024 8:24am Obesity December 05, 2024 8:24am Chief Complaint Admit Date 6 mo f/u June 08, 2025 8 :23am Reason for Visit Admit Date Adverse effect of prednisone June 8:23am Essential (primary) hypertension Novembe r 2024 8:23am Gout June 08, 2025 8 :23am IFG (impaired fasting glucose) June 08, 2025 8:23am Inflammatory polyarthritis June 08, 2025 8:23am Lumbar spondylosis June 08, 2025 8 :23am Medicare annual wellness visit, subseque nt June 08, 2025 8:23am Obesity June 08, 2025 8 :23am Screening for colon cancer June 08, 2025 8:23am Screening PSA (prostate specific antigen ) June 08, 2025 8:23am Acute sinusitis June 08, 2025 8 :23am Additional Source Comments REASON FOR VISIT (unrecogniz ed section and content) 6 MONTH FOLLOW UPquestionref erralwellnessLab results (unrecognized sect ion and content) No Status Records Found INFORMATION SOURCE (unrecogn ized section and content) DATE CREATED AUTHOR 12/12/2022 [facility] Care Teams (unrecognized sec tion and content) Team Status: Active Member Role Status Dates Luis Dyer , DO Primary Care Provider Active Team Status: Inactive Member Role Status Dates Luis Dyer , DO Primary Care Provide r, Attending Provider Active Start: December 05, 2024 End: December 05, 2024 Team Status: Active Member Role Status Dates Luis Dyer , Primary Care Provider Active Start: November 04, 2023 Heidi Little RMAAttenkristina ProviderActiveStart: November 04, 2023 Team Status: Inactive Member Role Status Dates Luis Dyer , DO Primary Care Provide r, Attending Provider Active Start: December 03, 2023 End: December 03, 2023 Team Status: Inactive Member Role Status Dates Luis Dyer , DO Primary Care Provide r, Attending Provider Active Start: January 29, 2024 End: January 29, 2024 Team Status: Active Member Role/Relationship Status Dates Luis Dyer , Primary Care Provider Active Team Status: Inactive Member Role/Relationship Status Dates Luis Dyer , DO Primary Care Provider Active Start: June 08, 2025 End: June 08enmarlenecarole DO GomezAttending ProviderActiveStart: June 08, 2025 End: June 08, 2025 Goals (unrecognized section and content) Goals may [...] BE BASED ON THE PRIMARY CLINICAL RECORDS. [employer] provides no warranty or guarantee of the accuracy or completeness of information in this document.
[2025-08-02 04:07] LABS: PSA, Free 0.53 ng/mL
== END 2025-08-01 08:09 | disposition home or self-care (01) ==
LOC: LAB 08:15
PROVIDERS: PCP Internal Medicine; Visit Provider Internal Medicine
DX: R97.20 Elevated prostate specific antigen [PSA] (principal)
CPT/HCPCS: 36415; 84153; 84154